=== PATIENT | female | born 1990 | race Caucasian/White ===

== ENCOUNTER 2017-05-08 10:39 | Emergency (ER) | payer BC, MEDICAID ==
--- NOTE | 2017-05-08 13:36 | UC ---
Throat Pain/Nasal Heath HPI - HPI Summary HPI Summary: 27 year old female presents with chest congestion and ear pain. - History of Current Complaint Stated Complaint: CONGESTION BILATERAL EAR PAIN Time Seen by Provider: 05/08/17 13:36 Hx Obtained From: Patient Onset/Duration: Sudden Onset Severity: Moderate Pain Scale Used: 0-10 Numeric - 5 Cough: Nonproductive Associated Signs & Symptoms: Positive: Negative - Epiglottits Risk Factors Epiglottis Risk Factors: Negative - Allergies/Home Medications Allergies/Adverse Reactions: Allergies Allergy/AdvReac Type Severity Reaction Status Date / Time Heparin Allergy Unknown Verified 05/08/17 13:39 Reaction Details Penicillins Allergy Hives Verified 05/08/17 13:39 Home Medications: Home Medications Cephalexin CAP* [Keflex CAP*] 500 mg PO BID 05/08/17 [History Confirmed 05/08/17 ] Escitalopram Oxalate [Lexapro 20 mg] 20 mg PO DAILY 05/08/17 [History Confirmed 05/08/17] Lacosamide TAB* [Vimpat TAB*] 250 mg PO BID 05/08/17 [History Confirmed 05/08/17 ] Zonisamide 300 mg PO BEDTIME 05/08/17 [History Confirmed 05/08/17] PMH/Surg Hx/FS Hx/Imm Hx Previously Healthy: Yes Review of Systems Constitutional: Negative Skin: Negative Eyes: Negative ENT: Ear Ache, Nasal Discharge, Sinus Congestion, Sinus Pain/Tenderness Respiratory: Negative Cardiovascular: Negative Gastrointestinal: Negative Genitourinary: Negative Motor: Negative Neurovascular: Negative Musculoskeletal: Negative Neurological: Negative Psychological: Negative All Other Systems Reviewed And Are Negative: Yes Physical Exam Triage Information Reviewed: Yes Vital Signs Reviewed: Yes Eye Exam: Normal ENT: Positive: Pharyngeal erythema, Nasal congestion, Nasal drainage, Sinus tenderness Dental Exam: Normal Neck exam: Normal Neck: Positive: 1 Respiratory Exam: Normal Cardiovascular Exam: Normal Abdominal Exam: Normal Musculoskeletal Exam: Normal Neurological Exam: Normal Psychological Exam: Normal Skin Exam: Normal Throat Pain/Nasal Course/Dx - Differential Dx/Diagnosis Provider Diagnoses: bilateral ear pain. sinus congestion. cough. sore throat Discharge - Discharge Plan Condition: Stable Disposition: HOME Prescriptions: Albuterol HFA INHALER* [Ventolin HFA Inhaler*] 1 puff INH Q6H PRN #1 mdi PRN Reason: Wheezing DOXYcycline CAP(*) [DOXYcycline 100MG CAP(*)] 100 mg PO BID #14 cap Guaifenesin-Codeine [Cheratussin AC] 1 teasp PO BEDTIME PRN #120 ml MDD 15 ml PRN Reason: Cough LoraTADine TAB(NF) [Claritin 10 MG TAB(NF)] 10 mg PO DAILY #30 tab Neomyc/Polym/HC 1% OTIC SUSP* [Cortisporin Otic Susp 1%*] 4 drop RIGHT EAR QID # 1 btl Patient Education Materials: Sinusitis (ED) Referrals: No Primary Care Phys,NOPCP [Primary Care Provider] -
[2017-05-08 13:39] VITALS: BP 118/80
== END 2017-05-08 14:01 | disposition home or self-care (01) ==
LOC: UCCORT 10:39
DX: H92.03 Otalgia, bilateral (principal); J34.89 Other specified disorders of nose and nasal sinuses; J02.9 Acute pharyngitis, unspecified; R05 Cough
CPT/HCPCS: 99212; G0463

== ENCOUNTER 2018-11-12 12:59 | Emergency (ER) | payer OTHER ==
--- OUTSIDE RECORDS SUMMARY | 2018-11-12 13:28 | XMS REPORT | Continuity of Care Document ---
:1990 External Reference #:[id number] Author Name Lee Mills M.D. Address [address] [facility] [address] [place] [address] Care Team Providers Name Role Phone Lee Mills M.D. Care Team Information Temperature Regulator Unavailable Payers Date Identification Numbers Payment Provider Subscriber Effective: 2018 Policy Number: [id number] [facility] Janet Raman PayID: [id number] [address] [place] [address] Policy Number: [id number] [employer] Janet Raman PayID: [id number] [address] [place] [address] Expires: 2018 Policy Number: [id number] [employer] Alida Allen PayID: [id number] [address] [address] [place] [address] Family History Date Family Member(s) Observation Comments General No Current Problems Father Unknown Mother Unknown Children None Siblings 2 Grandchildren None Social History Type Date Description Comments Sex Unknown Marital Status Legal Status: Never Work Status Unemployed ETOH Use Denies alcohol use Tobacco Use Start: Unknown Light tobacco smoker (10 or fewer cigarettes/day) Recreational Drug Use Denies Drug Use Smoking Status Reviewed: 10/18/18 Light tobacco smoker (10 or fewer cigarettes/day) Allergies, Adverse Reactions, Alerts Active Allergies Reaction Severity Comments Date Penicillins 01/27/2018 Medications Active Medications SIG Qnty Indications Ordering Provider Date Trazodone HCL 1-2 tab by mouth 60tabs G47.00 Lee Mills, 08/20/2018 50mg every night as M.D. Tablets needed F41.9 F33.9 Omeprazole 1 by mouth every 90caps K21.0 Lee Mills, 04/07/[address] day M.D. K30 Alprazolam 1 by mouth three 60tabs F41.9 Gene, Cyndieshahzad Rodriguez, 02/24/2018 0.25mg Tablets times a day as M.D. needed F33.9 Vimpat 1 tab by mouth twice 60tabs F41.9 Marium Bush 200mg a day-Neurology Tablets Vimpat 1 tab by mouth every F41.9 Marium Bush 50mg Tablets evening with the 200 mg-Neurology Proair HFA inhale 2 puffs by 17gm J45.909 Gene Cyndieshahzad Rodriguez, mouth every 4 hours M.D. 108(90Base) mcg/Act if needed Aerosol Zonisamide 4 by mouth every G40.909 Marium Bush 100mg evening Capsules Doxycycline 1 tab by mouth twice L70.0 Shravan Lovett MD Monohydrate a day-Dermatology 50mg Capsules History Medications Tobramycin 3 drop drops 10ml L20.9 Lee Mills, 03/10/2018 - 0.3% left ear three M.D. 03/20/2018 Solution times a day Sertraline HCL 1 by mouth 90tabs F41.9 Lee Mills, 01/27/2018 - 100mg every day M.D. 02/24/2018 Tablets F33.9 Cephalexin 1 by mouth 90caps Health Service Coordinator Dermatology In - 500mg twice a day Bobby 10/18/2018 Capsules Escitalopram Oxalate 1 by mouth 90tabs F41.9 Unknown - every day 01/27/2018 20mg Tablets F33.9 Permethrin Unknown - 5% Cream 01/27/2018 Prednisone Unknown - 20mg Tablets 01/27/2018 Neomycin/Polymyxin/Hyd Unknown - rocortisone (Otic) 01/27/2018 [id number] Suspension Guaifenesin-Codeine Unknown - 01/27/2018 100-10mg/5ML Solution Doxycycline Hyclate Unknown - 100mg 01/27/2018 Capsules Pantoprazole Sodium 1 by mouth 90tabs K21.0 Lee Mills, - 40mg every day M.D. 04/07/2018 Tablets K30 Immunizations CPT Code Status Date Vaccine Lot # [id number] Given 03/10/2018 Flu Vaccine [id number] Vital Signs Date Vital Result Comment 10/18/2018 9:46am BP Systolic 98 mmHg BP Diastolic 58 mmHg Height 63 inches 5'3" Weight 125.00 lb BMI (Body Mass Index) 22.1 kg/m2 Heart Rate 75 /min Respiratory Rate 16 /min 09/17/2018 10:33am BP Systolic 100 mmHg BP Diastolic 62 mmHg Height 63 inches 5'3" Weight 128.00 lb BMI (Body Mass Index) 22.7 kg/m2 Heart Rate 79 /min Respiratory Rate 16 /min 08/20/2018 3:52pm BP Systolic 110 mmHg BP Diastolic 66 mmHg Height 63 inches 5'3" Weight 130.00 lb BMI (Body Mass Index) 23.0 kg/m2 Heart Rate 90 /min Respiratory Rate 16 /min 06/23/2018 9:31am BP Systolic 102 mmHg BP Diastolic 58 mmHg Height 63 inches 5'3" Weight 144.00 lb BMI (Body Mass Index) 25.5 kg/m2 Heart Rate 76 /min Respiratory Rate 16 /min 05/21/2018 9:20am BP Systolic 118 mmHg BP Diastolic 62 mmHg Height 63 inches 5'3" Weight 149.00 lb BMI (Body Mass Index) 26.4 kg/m2 Heart Rate 91 /min Respiratory Rate 16 /min 04/07/2018 9:32am BP Systolic 102 mmHg BP Diastolic 60 mmHg Height 63 inches 5'3" Weight 153.00 lb BMI (Body Mass Index) 27.1 kg/m2 Heart Rate 70 /min Respiratory Rate 16 /min 03/10/2018 9:02am BP Systolic 100 mmHg BP Diastolic 60 mmHg Height 63 inches 5'3" Weight 154.00 lb BMI (Body Mass Index) 27.3 kg/m2 Heart Rate 102 /min Respiratory Rate 16 /min 02/24/2018 8:45am BP Systolic 110 mmHg BP Diastolic 68 mmHg Height 63 inches 5'3" Weight 158.00 lb BMI (Body Mass Index) 28.0 kg/m2 Heart Rate 92 /min Respiratory Rate 16 /min 01/27/2018 9:01am BP Systolic 110 mmHg BP Diastolic 58 mmHg Height 63 inches 5'3" Weight 157.00 lb BMI (Body Mass Index) 27.8 kg/m2 Heart Rate 87 /min Body Temperature 97.7 F Respiratory Rate 16 /min Results Test Date Facility Test Result H/L Range Note CBC With Diff 02/24/2018 [facility] WBC 6.1 10*3/uL (4.1-11.0) [address] [facility] (607)- - RBC 4.14 10*6/uL (4.00-5.40) HGB 14.1 g/dL (12.0-16.0) HCT 41.3 % (36.0-47.0) MCV 99.7 fL High (80.0-95.0) MCH 34.1 pg High (27.0-32.0) MCHC 34.2 g/dL (32.0-36.0) RDW 12.9 % (10.5-14.5) PLT 434 10*3/uL (150-450) MPV 7.5 fL (7.1-10.7) Neut % 40.3 % (35.0-75.0) Lymph % 34.9 % (16.0-52.0) [place] % 5.7 % (0.0-8.0) Eos % 17.9 % High (0.0-5.0) Baso % 1.2 % (0.0-4.0) Neut # 2.5 10*3/uL (1.8-7.7) Lymph # 2.1 10*3/uL (1.2-4.8) [place] # 0.4 10*3/uL (0.0-0.8) Eos # 1.1 10*3/uL High (0.0-0.5) Baso # 0.1 10*3/uL (0.0-0.2) CMP 02/24/2018 [facility] Sodium 143 mmol/L (136-145) [address] [facility] (607)- - Potassium 3.6 mmol/L (3.6-5.2) Chloride 111 mmol/L High (100-108) Co2 23 mmol/L (22-31) Anion Gap 9 mmol/L (7-16) Urea Nitrogen 12 mg/dL (7-24) Creatinine 0.96 mg/dL (0.60-1.00) BUN/Creat Ratio 12.5 RATIO (10.0-20.0) Glucose 77 mg/dL (70-99) Calcium 8.4 mg/dL (8.4-10.2) Total Protein 7.5 g/dL (6.4-8.2) Albumin 3.6 g/dL (3.5-4.6) Globulin 3.9 g/dL (2.7-4.3) Alb/Glob Ratio 0.9 RATIO Alkaline Phosphatase 70 U/L (45-117) Bilirubin,Total 0.3 mg/dL (0.0-1.0) Ast (Sgot) 15 U/L (11-39) Alt (SGPT) 16 U/L (12-78) GFR >60 ml/min/1.73m2 (>59) GFR ( Amer) >60 ml/min/1.73m2 (>59) GFR Interpretation <SEE NOTE> 1 Laboratory 02/24/2018 [facility] TSH,Ultrasensitive @ 2.910 (0.360- 4.170) test finding [address] [facility] mIU/L (981)- - Esr 10 mm/h (0-20) Lipid 02/24/2018 [facility] Cholesterol @ 164 mg/dL (0-200) [address] (609)- - Triglyceride @ 102 mg/dL (30-200) HDL Cholesterol @ 36 mg/dL Low (>40) 2 Chol/HDL Ratio 4.6 RATIO 3 LDL Chol (Calc) 108 mg/dL (<130) 4 Iron Panel 02/24/2018 [facility] Iron,Total @ 66 g/dL (35-150) [address] (605)- - Uibc @ 126 g/dL Low (130-375) Tibc @ 192 g/dL Low (250-450) % Saturation 34 % (12-50) Laboratory test 02/24/2018 [facility] Folate @ >20.0 ng/mL High (3.1- 17.5) finding [address] [facility] [facility] (773)- - Vitamin B12 @ 398 pg/mL (193-986) 25 Hydroxy Vit D @ 14 ng/mL Low (31-100) 5 1 NORMAL KIDNEY FUNCTION OR MILD DISEASE - GFR >OR=60 CHRONIC KIDNEY DISEASE - GFR 15 - 59 RENAL FAILURE - GFR <15 Est. GFR calculation based on the MDRD study equation, which assumes a steady state for creatinine. Est. GFR should not be used for medication dosing. 2 PER NCEP ATP III GUIDELINES: RESULTS LOWER THAN 40 MG/DL ARE SUGGESTIVE OF INCREASED RISK FOR CORONARY ARTERY DISEASE. RESULTS > OR=TO 60 MG/DL ARE CONSIDERED A NEGATIVE RISK FACTOR. 3 INTERPRETATION OF CHOL-HDL RATIO CHD RISK FEMALE MALE VERY HIGH >8.3 >14.3 HIGH 5.6- 8.3 6.7- 14.3 AVERAGE 3.7- 5.6 4.0- 6.7 BELOW AVERAGE 2.5- 3.7 2.7- 4.0 PROTECTED <2.5 <2.7 4 PER NCEP ATP III GUIDELINES: OPTIMAL < 100 NEAR OPTIMAL 100 - 129 BORDERLINE HIGH 130 - 159 HIGH 160 - 189 VERY HIGH > 189 5 A REVIEW OF THE LITERATURE SUGGESTS THE FOLLOWING RANGES FOR THE CLASSIFICATION OF 25-OH VITAMIN D STATUS: VITAMIN D STATUS 25-OH VITAMIN D DEFICIENCY <20 NG/ML INSUFFICIENCY 20-30 NG/ML SUFFICIENCY 31 - 100 NG/ML TOXICITY > 100 NG/ML A PEDIATRIC REFERENCE RANGE HAS NOT BEEN ESTABLISHED USING THIS METHOD. Procedures Date Code Description Status 09/17/2018 09855 Tympanometry Completed 03/10/2018 86064 Tympanometry Completed 01/27/2018 13719 Visual Screening Test Completed 01/27/2018 95771 Audiometry, Bekesy, Screening Completed Encounters Type Date Location Provider Dx Diagnosis Office Visit 10/18/2018 Lee Means, L20.9 Atopic dermatitis, 10:00a M.D. unspecified J30.9 Allergic rhinitis, unspecified J45.909 Unspecified asthma, uncomplicated K21.0 Gastro-esophageal reflux disease with esophagitis K30 Functional dyspepsia D64.9 Anemia, unspecified I67.89 Other cerebrovascular disease G40.909 Epilepsy, unsp, not intractable, without status epilepticus F41.9 Anxiety disorder, unspecified F33.9 Major depressive disorder, recurrent, unspecified G47.00 Insomnia, unspecified H90.6 Mixed conductive and sensorineural hearing loss, bilateral E55.9 Vitamin D deficiency, unspecified F12.10 Cannabis abuse, uncomplicated H92.02 Otalgia, left ear Office Visit 09/17/2018 10:30a Lee Means, L20.9 Atopic dermatitis, M.D. unspecified J30.9 Allergic rhinitis, unspecified J45.909 Unspecified asthma, uncomplicated K21.0 Gastro-esophageal reflux disease with esophagitis K30 Functional dyspepsia D64.9 Anemia, unspecified I67.89 Other cerebrovascular disease G40.909 Epilepsy, unsp, not intractable, without status epilepticus F41.9 Anxiety disorder, unspecified F33.9 Major depressive disorder, recurrent, unspecified G47.00 Insomnia, unspecified H90.6 Mixed conductive and sensorineural hearing loss, bilateral E55.9 Vitamin D deficiency, unspecified F12.10 Cannabis abuse, uncomplicated H92.02 Otalgia, left ear Office Visit 08/20/2018 4:15p Lee Means, L20.9 Atopic dermatitis, M.D. unspecified J30.9 Allergic rhinitis, unspecified J45.909 Unspecified asthma, uncomplicated K21.0 Gastro-esophageal reflux disease with esophagitis K30 Functional dyspepsia D64.9 Anemia, unspecified I67.89 Other cerebrovascular disease G40.909 Epilepsy, unsp, not intractable, without status epilepticus F41.9 Anxiety disorder, unspecified F33.9 Major depressive disorder, recurrent, unspecified G47.00 Insomnia, unspecified H90.6 Mixed conductive and sensorineural hearing loss, bilateral E55.9 Vitamin D deficiency, unspecified F12.10 Cannabis abuse, uncomplicated Office Visit 06/23/2018 9:45a Lee Means, L20.9 Atopic dermatitis, M.D. unspecified J30.9 Allergic rhinitis, unspecified J45.909 Unspecified asthma, uncomplicated K21.0 Gastro-esophageal reflux disease with esophagitis K30 Functional dyspepsia D64.9 Anemia, unspecified I67.89 Other cerebrovascular disease G40.909 Epilepsy, unsp, not intractable, without status epilepticus F41.9 Anxiety disorder, unspecified F33.9 Major depressive disorder, recurrent, unspecified G47.00 Insomnia, unspecified H90.6 Mixed conductive and sensorineural hearing loss, bilateral E55.9 Vitamin D deficiency, unspecified Office Visit 05/21/2018 9:15a Lee Means, L20.9 Atopic dermatitis, MSrinathD. unspecified J30.9 Allergic rhinitis, unspecified J45.909 Unspecified asthma, uncomplicated K21.0 Gastro-esophageal reflux disease with esophagitis K30 Functional dyspepsia D64.9 Anemia, unspecified I67.89 Other cerebrovascular disease G40.909 Epilepsy, unsp, not intractable, without status epilepticus F41.9 Anxiety disorder, unspecified F33.9 Major depressive disorder, recurrent, unspecified G47.00 Insomnia, unspecified H90.6 Mixed conductive and sensorineural hearing loss, bilateral E55.9 Vitamin D deficiency, unspecified Office Visit 04/07/2018 9:15a Lee Means, L20.9 Atopic dermatitis, M.D. unspecified J30.9 Allergic rhinitis, unspecified J45.909 Unspecified asthma, uncomplicated K21.0 Gastro-esophageal reflux disease with esophagitis K30 Functional dyspepsia D64.9 Anemia, unspecified I67.89 Other cerebrovascular disease G40.909 Epilepsy, unsp, not intractable, without status epilepticus F41.9 Anxiety disorder, unspecified F33.9 Major depressive disorder, recurrent, unspecified G47.00 Insomnia, unspecified H90.6 Mixed conductive and sensorineural hearing loss, bilateral E55.9 Vitamin D deficiency, unspecified H66.92 Otitis media, unspecified, left ear Office Visit 03/10/2018 9:15a Lee Means, L20.9 Atopic dermatitis, M.D. unspecified J30.9 Allergic rhinitis, unspecified J45.909 Unspecified asthma, uncomplicated K21.0 Gastro-esophageal reflux disease with esophagitis K30 Functional dyspepsia D64.9 Anemia, unspecified I67.89 Other cerebrovascular disease G40.909 Epilepsy, unsp, not intractable, without status epilepticus F41.9 Anxiety disorder, unspecified F33.9 Major depressive disorder, recurrent, unspecified G47.00 Insomnia, unspecified H90.6 Mixed conductive and sensorineural hearing loss, bilateral E55.9 Vitamin D deficiency, unspecified H66.92 Otitis media, unspecified, left ear Z23 Encounter for immunization Office Visit 02/24/2018 8:45a Lee Means, L20.9 Atopic dermatitis, M.D. unspecified J30.9 Allergic rhinitis, unspecified J45.909 Unspecified asthma, uncomplicated K21.0 Gastro-esophageal reflux disease with esophagitis K30 Functional dyspepsia D64.9 Anemia, unspecified I67.89 Other cerebrovascular disease G40.909 Epilepsy, unsp, not intractable, without status epilepticus F41.9 Anxiety disorder, unspecified F33.9 Major depressive disorder, recurrent, unspecified G47.00 Insomnia, unspecified H90.6 Mixed conductive and sensorineural hearing loss, bilateral E55.9 Vitamin D deficiency, unspecified Office Visit 01/27/2018 9:15a Lee Means, Z00.01 Encounter for general M.D. adult medical exam w abnormal findings L20.9 Atopic dermatitis, unspecified J30.9 Allergic rhinitis, unspecified J45.909 Unspecified asthma, uncomplicated K21.0 Gastro-esophageal reflux disease with esophagitis K30 Functional dyspepsia D64.9 Anemia, unspecified I67.89 Other cerebrovascular disease G40.909 Epilepsy, unsp, not intractable, without status epilepticus F41.9 Anxiety disorder, unspecified F33.9 Major depressive disorder, recurrent, unspecified Z68.27 Body mass index (BMI) 27.0-27.9, adult G47.00 Insomnia, unspecified H90.6 Mixed conductive and sensorineural hearing loss, bilateral Plan of Treatment Future Appointment(s):11/17/2018 9:00 am - Lee Mills M.D. at [facility]06/2018 - Lee Mills M.D.L20.9 Atopic dermatitis, unspecifiedComments:SKIN CARE INSTRUCTIONS LOTION OR BABY OIL 2-3 APPLICATION PER DAYUSE MOISTURIZING SOAPAVOID PROLONGED WATER EXPOSUREAVOID USING HOT WATER IN PPSITUY58.9 Allergic rhinitis, unspecifiedComments:INCREASE PO FLUID USE ANTIHISTAMINE PRN SECOND HAND SMOKING JXFLRDERTP10.909 Unspecified asthma, uncomplicatedComments:MDI / NEBULIZER TX PRN AVOID EXPOSURE TO SMOKING OR NVJQYD97.0 Gastro-esophageal reflux disease with esophagitisComments:AVOID CAFFEINE, ETOH AND SPICY FOODSTUMS OR MYLANTA PRN CALL WITH PROBLEMS OR [id number] Functional dyspepsiaComments:AVOID CAFFEINE, ETOH AND SPICY FOODSTUMS OR MYLANTA PRN CALL WITH PROBLEMS OR YBDCLCBLB35.9 Anemia, unspecifiedComments:OBSERVENUTRITIONAL SUPPORT F/U WITH RGLQRCJUDVY29.89 Other cerebrovascular diseaseComments:STABLE F/U WITH NEUROLOGY PRNG40.909 Epilepsy, unspecified, not intractable, without status epileComments:F/U WITH NEUROLOGY PRNOBSERVE SAFETY KSROUJV85.9 Anxiety disorder, unspecifiedComments:COUNCELLING AND REASSURANCE RELAXATION TECHNIQUES DISCUSSEDCOUNSELED RE: STRESSORS IN LIFE AVOID ALLENERGY/HIGH CAFFEINE DRINKS DUR RBROFCMH44.9 Major depressive disorder, recurrent, unspecifiedComments: COUNCELLING AND REASSURANCE RELAXATION TECHNIQUES DISCUSSED COUNSELED RE: STRESSORS IN LIFE REFRED TO [facility] PYFPEXS36.00 Insomnia, unspecifiedComments:COUNCELLING AND REASSURANCE RELAXATION TECHNIQUES DISCUSSED COUNSELED RE: STRESSORS IN LIFE TYLENOLPM OR MOTRIN PM PRNH90.6 Mixed conductive and sensorineural hearing loss, bilateralComments:OBSERVE F/U WITH ENT PRNE55.9 Vitamin D deficiency, unspecifiedComments:INCREASE EXPOSURE TO SUNREVIEW OF DIETF12.10 Cannabis abuse, uncomplicatedComments:CESSATION ENCOURAGEDLONG TERM EFFECTS ENOEWPUNFS53.02 Otalgia, left earComments:RESOLVED
[2018-11-12 13:56] VITALS: BP 113/82
[2018-11-12] MEDS ORDERED: Lidocaine 1% MPF ** 5 ML VIAL INJ ONE (14:11)
--- NOTE | 2018-11-12 14:17 | UC ---
Skin Complaint HPI - HPI Summary HPI Summary: 28-year-old woman comes in with a chief complaint of a left facial skin abscess. Patient has a history of hidradenitis suppurative. For months she's been on doxycycline 50 mg by mouth 3 times a day she feels like her condition is gotten worse since then. The abscess is tender to palpation has not drained. She does have a fever today. She tells me that she can be started on Accutane on November 15, 2018.. He states she was on Keflex which seemed to be doing a better job than the doxycycline. - History of Current Complaint Chief Complaint: UCSkin Time Seen by Provider: 11/12/18 14:03 Stated Complaint: FACE SKIN CONCERN Hx Last Menstrual Period: 04/30/17 Pain Intensity: 10 - Allergy/Home Medications Allergies/Adverse Reactions: Allergies Allergy/AdvReac Type Severity Reaction Status Date / Time heparin Allergy Unknown Verified 11/12/18 13:57 Reaction Details Penicillins Allergy Hives Verified 11/12/18 13:57 Home Medications: Home Medications ALPRAZolam TAB* [Xanax TAB*] 0.25 mg PO Q6H PRN 11/12/18 [History Confirmed 09/26] DOXYcycline CAP(*) [DOXYcycline 100MG CAP(*)] 50 mg PO TID 11/12/18 [History] PMH/Surg Hx/FS Hx/Imm Hx Previously Healthy: Yes - HIDRADENITIS SUPPURATIVA - Surgical History Surgical History: Yes Surgery Procedure, Year, and Place: Brain surgery 2014 - Family History Known Family History: Positive: Non-Contributory - Social History Alcohol Use: Occasionally Substance Use Type: None Smoking Status (MU): Light Every Day Tobacco Smoker Type: Cigarettes Amount Used/How Often: 1/2ppd Review of Systems All Other Systems Reviewed And Are Negative: Yes Constitutional: Positive: Fever Skin: Positive: Other - SEE HPI Eyes: Positive: Negative ENT: Positive: Negative Respiratory: Positive: Negative Cardiovascular: Positive: Negative Gastrointestinal: Positive: Negative Motor: Positive: Negative Neurovascular: Positive: Negative Musculoskeletal: Positive: Negative Neurological: Positive: Negative Psychological: Positive: Negative Is Patient Immunocompromised?: No Physical Exam Triage Information Reviewed: Yes Appearance: Well-Appearing, No Pain Distress, Well-Nourished Vital Signs: Initial Vital Signs Temp 101 F 07/05/19 13:49 Pulse 71 11/12/18 13:49 Resp 15 11/12/18 13:49 BP 113/82 11/12/18 13:49 Pulse Ox 99 11/12/18 13:49 Vital Signs Reviewed: Yes Eye Exam: Normal Eyes: Positive: Conjunctiva Clear ENT: Positive: Pharynx normal Neck: Positive: Supple Respiratory: Positive: No respiratory distress Musculoskeletal: Positive: Strength Intact, ROM Intact Neurological: Positive: Alert, Muscle Tone Normal Psychological Exam: Normal Psychological: Positive: Age Appropriate Behavior Skin: Positive: Other - SWELLING LEFT CHEEK 3CM X 2CM. TENDER TO PALPATION. Procedures - Incision and Drainage Left Face Anesthesia: Local, Lidocaine - 1% Instrument(s): Scalpel Packing: Gauze Course/Dx - Course Course Of Treatment: There was pus that came out of the abscess. I got a culture THAT patient reports that Keflex is helped in the past therefore we'll start on Keflex 500 mg by mouth 3 times a day. Patient reports that on November 15, 2018 she's can be starting Accutane through her ceramic plater. I told her to discuss the prescription of the Keflex with her ceramic plater. Follow-up sooner if worse or any questions or concerns. - Diagnoses Provider Diagnosis: Abscess of skin, Hidradenitis suppurativa Discharge - Sign-Out/Discharge Documenting (check all that apply): Patient Departure All imaging exams completed and their final reports reviewed: No Studies - Discharge Plan Condition: Stable Disposition: HOME Prescriptions: Cephalexin CAP* [Keflex CAP*] 500 mg PO TID #30 cap Patient Education Materials: Abscess (ED), Hidradenitis Suppurativa (ED) Referrals: Lee Mills MD [Primary Care Provider] - Additional Instructions: FOLLOW UP WITH YOUR VICE PRESIDENT OF MANUFACTURING. GET REEVALUATED SOONER IF WORSE OR ANY QUESTIONS OR CONCERNS. - Billing Disposition and Condition Condition: STABLE Disposition: Home
--- NOTE | 2018-11-15 07:24 | UC ---
- Progress Note Progress Note: MRSA neg S. Aureus Neg normal janel 1+ on cephalexin await culture 11/15/18 7:23am Course/Dx - Diagnoses Provider Diagnoses: Abscess of skin, Hidradenitis suppurativa Discharge - Sign-Out/Discharge Documenting (check all that apply): Post-Discharge Follow Up All imaging exams completed and their final reports reviewed: No Studies - Discharge Plan Condition: Stable Disposition: HOME Prescriptions: Cephalexin CAP* [Keflex CAP*] 500 mg PO TID #30 cap Patient Education Materials: Abscess (ED), Hidradenitis Suppurativa (ED) Referrals: Lee Mills MD [Primary Care Provider] - Additional Instructions: FOLLOW UP WITH YOUR EDITING CLERK. GET REEVALUATED SOONER IF WORSE OR ANY QUESTIONS OR CONCERNS. - Billing Disposition and Condition Condition: STABLE Disposition: Home
== END 2018-11-12 14:53 | disposition home or self-care (01) ==
LOC: UCCORT 12:59
DX: L02.01 Cutaneous abscess of face (principal); L73.2 Hidradenitis suppurativa; Z88.0 Allergy status to penicillin; F17.210 Nicotine dependence, cigarettes, uncomplicated
CPT/HCPCS: 10060; 87070; 87077; 87205; 87640; 87641; 99212; G0463